=== PATIENT | male | born 1995 | race Caucasian/White ===

== ENCOUNTER 2018-12-19 22:40 | Emergency (ER) | payer OTHER ==
[~2018-12-19] VITALS: Ht 175.3 cm; Wt 88.5 kg
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
[2018-12-19 22:55] VITALS: BP 150/95
[2018-12-20] MEDS ORDERED: ACETAMINOPHEN 500 MG TABLET PO ONE
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
== END 2018-12-20 01:25 | disposition home or self-care (01) ==
LOC: ER 22:40
DX: S00.83XA Contusion of other part of head, initial encounter (principal); Y04.0XXA Assault by unarmed brawl or fight, initial encounter; Y93.89 Activity, other specified; Y92.89 Other specified places as the place of occurrence of the external cause; Y99.8 Other external cause status
CPT/HCPCS: 70450; 70486; 72125; 99284